=== PATIENT | female | born 1960 | race Caucasian/White ===

== ENCOUNTER 2020-12-25 22:54 | Emergency (ER) | payer OTHER ==
[2020-12-25] MEDS ORDERED: Lidocaine 1% with EPINEPHrine 1:100,000 50 ML MDV SUBCUT STA (23:33)
[2020-12-25] MEDS ORDERED: Bacitracin Oint 1 GM U/D Packet TOP ONE (23:33)
--- NOTE | 2020-12-25 23:36 | EDM.PDOC ---
ED HPI GENERAL MEDICAL PROBLEM - General Chief Complaint: Laceration Stated Complaint: CUT LEFT HAND Time Seen by Provider: 12/25/20 23:30 Source of Information: Reports: Patient, Family, RN Notes Reviewed History Limitations: Reports: No Limitations - History of Present Illness INITIAL COMMENTS - FREE TEXT/NARRATIVE: 60-year-old female presents emergency department today following an injury at home where she was breaking a stick broke ended up lacerating her left hand in between digits 1 and 2 no functional complaints - Related Data Allergies Allergy/AdvReac Type Severity Reaction Status Date / Time No Known Allergies Allergy Verified 12/25/20 23:18 Home Meds: Home Meds PARoxetine [Paxil] 20 mg PO DAILY 12/25/20 [History] Progesterone, Micronized [Progesterone] 100 mg PO BEDTIME 12/25/20 [History] estradioL [Climara] 1 each TD WEEKLY 12/25/20 [History] Past Medical History HEENT History: Reports: Impaired Vision [employer] History: Reports: Psychiatric History: Reports: Depression - Infectious Disease History Infectious Disease History: Reports: Chicken Pox, Influenza, Measles Social & Family History - Tobacco Use Tobacco Use Status *Q: Never Tobacco User ED ROS GENERAL - Review of Systems Review Of Systems: See Below Skin: Reports: Wound ED EXAM, SKIN/RASH Exam: See Below Text/Narrative:: Examination of the left hand there is a 1.5 cm flap in between digits 1 and 2 palmar surface full range of motion of digits radial pulses +2 sensation is intact Exam Limited By: No Limitations General Appearance: Alert, WD/WN, No Apparent Distress ED SKIN PROCEDURES - Laceration/Wound Repair Left Hand Appearance: Subcutaneous, Irregular Distal NVT: Neuro & Vascular Intact, No Tendon Injury Anesthetic Type: Local Local Anesthesia - Lidocaine (Xylocaine): 1% with EPI Local Anesthetic Volume: 2cc Skin Prep: Saline Saline Irrigation (cc's): 100 Exploration/Debridement/Repair: Wound Explored, In a Bloodless Field, Explored to Base Closed with: Sutures Lac/Wound length In cm: 1.5 Suture Size: 4-0 # of Sutures: 3 Suture Type: Interrupted Sterile Dressing Applied: Nurse Tetanus Status Addressed: Yes Complications: No Course - Vital Signs Last Recorded V/S: Last Vital Signs Temp 97.7 F 12/25/20 23:26 Pulse 77 12/25/20 23:26 Resp 17 12/25/20 23:26 BP 108/57 L 12/25/20 23:26 Pulse Ox 97 12/25/20 23:26 - Orders/Labs/Meds Meds: Medications Discontinued Medications Generic Name Dose Route Start Last Admin Trade Name Herbetrh PRN Reason Stop Dose Admin Bacitracin 1 dose 12/25/20 23:33 12/25/20 23:38 Bacitracin Oint 1 Gm U/D Packet TOP 12/25/20 23:34 1 dose ONETIME ONE Administration Lidocaine/Epinephrine 20 ml 12/25/20 23:33 12/25/20 23:37 Lidocaine 1% With Epinephrine 1:100,000 50 Ml Mdv SUBCUT 12/25/20 23:34 20 ml NOW STA Administration Departure - Departure Time of Disposition: 23:51 Disposition: Home, Self-Care 01 Condition: Good Clinical Impression: Laceration of left thumb Qualifiers: Encounter type: initial encounter Damage to nail status: without damage Foreign body presence: without foreign body Qualified Code(s): S61.012A - Laceration without foreign body of left thumb without damage to nail, initial encounter - Discharge Information Instructions: Laceration Care, Adult, [id number] Referrals: PCP,None [Primary Care Provider] - Forms: ED Department Discharge Additional Instructions: Surgeon removal in 10 days, return to the emergency department or follow-up with primary care in clinic call return to the emergency department worsening of symptoms Sepsis Event Note (ED) - Evaluation Sepsis Screening Result: No Definite Risk - Focused Exam Vital Signs: Vital Signs Temp Pulse Resp BP Pulse Ox 12/25/20 23:26 97.7 F 77 17 108/57 L 97 12/25/20 23:25 97.7 F 77 17 108/57 L 97 - Assessment/Plan Plan: Assessment Acuity = acute Site and laterality = 1.5 cm laceration left hand Etiology = trauma with with a stick Manifestations = none Location of injury = Home Lab values = none tetanus done in 2015 Plan Suture removal in 10 days, follow-up with primary care return to the emergency department for suture removal This note was dictated using [employer] voice recognition software please call with any questions on syntax or grammar.
== END 2020-12-26 00:18 | disposition home or self-care (01) ==
LOC: JP.ED 22:54
DX: S61.012A Laceration without foreign body of left thumb without damage to nail, initial encounter (principal); W26.8XXA Contact with other sharp object(s), not elsewhere classified, initial encounter; Y92.009 Unspecified place in unspecified non-institutional (private) residence as the place of occurrence of the external cause
CPT/HCPCS: 12001; 99282-25